=== PATIENT | male | born 1965 | race Caucasian/White ===

== ENCOUNTER 2020-01-06 09:10 | Day surgery (SDC) | payer OTHER, BC ==
[~2020-01-06 09:10] MED LIST: EPINEPHrine 1 MG/ML SDV ONE; Lidocaine 1% 4 ML ONE; Lidocaine 1%/Sod Bicarbonate in NS 8.4% 1 ML Syringe IDERM PRN; Midazolam 1 MG/ML 2 ML SDV ONE; Neostigmine Methylsulfate 1 MG/ML 5 ML Syringe ONE; Ondansetron 4 MG/2 ML SDV ONE; Propofol 200 MG/20 ML SDV ONE; Rocuronium 50 MG/5 ML Vial ONE; Ropivacaine 0.5% 5 MG/ML 30 ML SDV ONE; Sodium Chloride 0.9% 10 ML Syringe FLUSH PRN; ceFAZolin 1 GM Vial ONE; fentaNYL 250 MCG/5 ML SDV ONE
--- NOTE | 2020-01-06 09:50 | PCM.PREANE ---
Preanesthetic Assessment - Procedure Proposed Procedure: left shoulder video arthroscopy with rotator cuff repair - Anesthesia/Transfusion/Family Hx Anesthesia History: Prior Anesthesia Reaction Type of Anesthesia Reaction: Other (see below) (difficult breathing after) Family History of Anesthesia Reaction: No Transfusion History: No Prior Transfusion(s) - Review of Systems General: No Symptoms, Fever (2 weeks ago with the flu), Chills Pulmonary: Cough (flu 2 weeks ago) Cardiovascular: No Symptoms (uses treadmill ) Gastrointestinal: No Symptoms Neurological: No Symptoms Other: Reports: Thyroid Problems, Sinus Problem (history with freq sinus infections) - Physical Assessment NPO Status Date: 01/05/20 NPO Status Time: 23:00 Vital Signs: 137/90 72 99% 16 Height: 5 ft 8 in Weight: 92.7 kg ASA Class: 2 Mental Status: Alert & Oriented x3 Airway Class: Mallampati = 1 Dentition: Reports: Normal Dentition Thyro-Mental Finger Breadths: 3 Mouth Opening Finger Breadths: 3 ROM/Head Extension: Full Lungs: Clear to Auscultation, Normal Respiratory Effort Cardiovascular: Regular Rate, Regular Rhythm - Lab Values: Laboratory Last Values MRSA (PCR) Negative 01/04/20 17:20 - Allergies Allergies/Adverse Reactions: Allergies Allergy/AdvReac Type Severity Reaction Status Date / Time acetaminophen Allergy elevated Verified 01/05/20 14:53 heartrate - Blood Blood Available: No - Acknowledgements Anesthesia Type Planned: General Anesthesia Pt an Appropriate Candidate for the Planned Anesthesia: Yes Alternatives and Risks of Anesthesia Discussed w Pt/Guardian: Yes Pt/Guardian Understands and Agrees with Anesthesia Plan: Yes PreAnesthesia Questionnaire HEENT History: Reports: Impaired Vision Cardiovascular History: Reports: Hypertension Respiratory History: Reports: Sleep Apnea (cpap) Gastrointestinal History: Reports: Chronic Diarrhea, Diverticulosis Genitourinary History: Reports: None PHOTO STUDIO ASSISTANT History: Reports: None Musculoskeletal History: Reports: Other (See Below) Other Musculoskeletal History: left rotator cuff tear, left shoulder pain, joint arthralgia Neurological History: Reports: Migraines Psychiatric History: Reports: None Endocrine/Metabolic History: Reports: Hypothyroidism Hematologic History: Reports: None Immunologic History: Reports: None Oncologic (Cancer) History: Reports: None Dermatologic History: Reports: None - Past Surgical History Head Surgeries/Procedures: Reports: None HEENT Surgical History: Reports: None Cardiovascular Surgical History: Reports: None Respiratory Surgical History: Reports: None GI Surgical History: Reports: Cholecystectomy, Colonoscopy, Other (See Below) Other GI Surgeries/Procedures: pilonidal cystectomy Female Surgical History: Reports: None Male Surgical History: Reports: None Endocrine Surgical History: Reports: None Neurological Surgical History: Reports: C-Spine Other Neurological Surgeries/Procedures: [id number] fusion Musculoskeletal Surgical History: Reports: Other (See Below) Other Musculoskeletal Surgeries/Procedures:: bilateral rotator cuff repairs Oncologic Surgical History: Reports: None Dermatological Surgical History: Reports: None - SUBSTANCE USE Smoking Status *Q: Never Smoker Tobacco Use Within Last Twelve Months: No Second Hand Smoke Exposure: No Days Per Week of Alcohol Use: 1 Number of Drinks Per Day: 3 Total Drinks Per Week: 3 Recreational Drug Use History: No - HOME MEDS Home Medications: Home Meds Furosemide 20 mg PO DAILY 12/25/17 [History] Tadalafil [Cialis] 5 mg PO ASDIRECTED PRN 12/25/17 [History] Levothyroxine [Synthroid] 50 mcg PO DAILY 01/05/20 [History] Losartan [Cozaar] 50 mg PO DAILY 01/05/20 [History] SUMAtriptan Succinate [Imitrex] 25 mg PO ASDIRECTED PRN 01/05/20 [History] - CURRENT (IN HOUSE) MEDS Current Meds: Current Medications Epinephrine HCl (Adrenalin) 3 mg .XX ONETIME ONE Stop: 01/06/20 11:31 Lactated Ringer's (Ringers, Lactated) 1,000 mls @ 125 mls/hr IV ASDIRECTED KRISHNA Stop: 01/06/20 23:00 Lidocaine/Sodium Bicarbonate (Buffered Lidocaine 1% In Ns 8.4%) 0.25 ml IDERM ONETIME PRN PRN Reason: Prior to IV Start Stop: 01/06/20 18:00 Sodium Chloride (Saline Flush) 10 ml FLUSH ASDIRECTED PRN PRN Reason: Keep Vein Open Stop: 01/06/20 18:00 Discontinued Medications Cefazolin Sodium (Ancef) Confirm Administered Dose 2 gm .ROUTE .STK-MED ONE Stop: 01/06/20 08:38 Epinephrine HCl (Adrenalin) Confirm Administered Dose 1 mg .ROUTE .STK-MED ONE Stop: 01/06/20 07:15 Fentanyl (Sublimaze) Confirm Administered Dose 250 mcg .ROUTE .STK-MED ONE Stop: 01/06/20 08:06 Glycopyrrolate () Confirm Administered Dose 1 mg .ROUTE .STK-MED ONE Stop: 01/06/20 08:36 Lidocaine HCl (Xylocaine-Mpf 1%) Confirm Administered Dose 4 mls @ as directed .ROUTE .STUrban Massage-MED ONE Stop: 01/06/20 08:05 Midazolam HCl (Versed 1 Mg/Ml) Confirm Administered Dose 2 mg .ROUTE .STK-MED ONE Stop: 01/06/20 08:06 Ondansetron HCl (Zofran) Confirm Administered Dose 4 mg .ROUTE .STUrban Massage-MED ONE Stop: 01/06/20 08:05 Propofol (Diprivan 20 Ml) Confirm Administered Dose 200 mg .ROUTE .STUrban Massage-MED ONE Stop: 01/06/20 08:06 Rocuronium Pierre (Zemuron) Confirm Administered Dose 50 mg .ROUTE .STUrban Massage-MED ONE Stop: 01/06/20 08:05 Ropivacaine (Naropin 0.5%) Confirm Administered Dose 30 ml .ROUTE .STK-MED ONE Stop: 01/06/20 07:15
[2020-01-06] MEDS: Lactated Ringers 1,000 ML IV SCH ×2 (10:00→13:45)
[2020-01-06] MEDS ORDERED: Bupivacaine 0.25% 10 ML SDV ONE (10:13)
[2020-01-06] MEDS ORDERED: Ketamine 500 mg/10 ML MDV ONE (10:32)
[2020-01-06] MEDS ORDERED: HYDROmorphone 0.5 MG/0.5 ML Syringe ONE (10:33)
[2020-01-06] MEDS ORDERED: Ondansetron 4 MG/2 ML SDV IVPUSH PRN (10:37)
[2020-01-06] MEDS ORDERED: HYDROmorphone 0.5 MG/0.5 ML Syringe IVPUSH PRN (10:37)
[2020-01-06] MEDS ORDERED: fentaNYL 100 MCG/2 ML SDV IVPUSH PRN (10:37)
[2020-01-06] MEDS ORDERED: Ketorolac 30 MG/ML SDV ONE (10:50)
[2020-01-06] MEDS ORDERED: Neostigmine Methylsulfate 1 MG/ML 5 ML Syringe ONE (11:05)
[2020-01-06] MEDS ORDERED: EPINEPHrine 1 MG/1 ML Amp ONE (11:30)
--- NOTE | 2020-01-06 11:41 | PCM.POSTAN ---
POST ANESTHESIA ASSESSMENT - MENTAL STATUS Mental Status: Alert, Oriented - VITAL SIGNS Vital Signs: Last Vital Signs Temp 97.9 F 01/06/20 09:40 Pulse 77 01/06/20 09:40 Resp 16 01/06/20 09:40 BP 137/90 01/06/20 09:40 Pulse Ox 97 01/06/20 09:40 103 13 98 1 118/90 100% - RESPIRATORY Respiratory Status: Respiratory Rate WNL, Airway Patent, O2 Saturation Stable, Supplemental Oxygen - CARDIOVASCULAR CV Status: Pulse Rate WNL, Blood Pressure Stable - GASTROINTESTINAL GI Status: No Symptoms - PAIN Pain Score: 0 (states he is groggy) - POST OP HYDRATION Hydration Status: Adequate & Stable
[2020-01-06] MEDS ORDERED: oxyCODONE 5 MG Tab PO PRN ×3 (12:07→12:23)
--- NOTE | 2020-01-06 12:36 | PCM48HPAN ---
Post Anesthesia Note - EVALUATION WITHIN 48HRS OF ANESTHETIC Vital Signs in Normal Range: Yes Patient Participated in Evaluation: Yes Respiratory Function Stable: Yes Airway Patent: Yes Cardiovascular Function Stable: Yes Hydration Status Stable: Yes Pain Control Satisfactory: Yes Nausea and Vomiting Control Satisfactory: Yes Mental Status Recovered: Yes (pain is a 1. no complaints) Vital Signs: Last Vital Signs Temp 98.2 F 01/06/20 12:30 Pulse 77 01/06/20 12:30 Resp 15 01/06/20 12:30 BP 115/81 01/06/20 12:30 Pulse Ox 95 01/06/20 12:30
[2020-01-06] MEDS ORDERED: Haloperidol Lactate 5 MG/ML SDV ONE (13:42)
[2020-01-06] MEDS ORDERED: Haloperidol Lactate 5 MG/ML SDV IVPUSH STA (13:45)
--- NOTE | 2020-01-12 12:55 | PCM.OPNOTE ---
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
--- NOTE | 2020-01-12 13:21 | OR ---
DATE OF OPERATION: 01/06/2020 SURGEON: Jose Seay MD OPERATION PERFORMED: Left shoulder video arthroscopy with limited debridement. PREOPERATIVE DIAGNOSIS: Left shoulder rotator cuff tear. 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 ANESTHESIA: The patient did not receive a block. ANESTHESIA PROVIDER: Mg Mccoy CRNA. SOLAR INSTALLATION MANAGER: Pastora Cerna LPN. ESTIMATED BLOOD LOSS: Less than 5 mL. COMPLICATIONS: None. CONDITION: Stable. DESCRIPTION OF PROCEDURE: The patient was identified in the preop holding area. Proper site was marked and identified by the surgeon. The patient was taken back to the operating theater where after adequate anesthesia, the patient was placed in the lazy right lateral decubitus position. A wedge was placed posteriorly. The patient was secured to the table. Left upper extremity was then sterilely prepped and draped in the usual sterile fashion. OR time-out was performed. Patient received 2 g of IV Ancef. Ten pounds of traction was then applied to the left upper extremity. A standard posterior incision was made. Scope trocar was introduced to the glenohumeral joint. At this time, with the use of a spinal needle, anterior portal was then created from an outside-in technique. The patient was noted to have high-grade partial thickness tearing of the subscapularis. 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 His previous biceps tendon had ruptured. The patient was noted to have full-thickness rotator cuff tear of the supraspinatus. The previous suture was identified in the interval. This was then debrided out. I did debride any synovitis, but at this time, it was decided secondary to the patient's large amount of chondromalacia that he would need a reverse total shoulder arthroplasty and rotator cuff repair would not be attempted at this time. Excess saline was drained from the shoulder after a limited debridement. 3-0 nylon simple suture was used for closure of skin. Patient had a sterile soft dressing applied and was sent to PACU in stable condition. MMODAL /[id number]
== END 2020-01-06 14:56 | disposition home or self-care (01) ==
LOC: JD.SDS 09:10
PROVIDERS: ATTEND Orthopaedic Surgery
DX: M75.122 Complete rotator cuff tear or rupture of left shoulder, not specified as traumatic (principal); M94.212 Chondromalacia, left shoulder; S46.812A Strain of other muscles, fascia and tendons at shoulder and upper arm level, left arm, initial encounter; E03.9 Hypothyroidism, unspecified; I10 Essential (primary) hypertension; G43.909 Migraine, unspecified, not intractable, without status migrainosus; G47.30 Sleep apnea, unspecified; Z88.6 Allergy status to analgesic agent; Z79.52 Long term (current) use of systemic steroids; Z99.89 Dependence on other enabling machines and devices; Z79.899 Other long term (current) drug therapy
CPT/HCPCS: 29822; 87641; A9270; J0690; J1170; J1630; J1885; J2001; J2250; J2405; J2704; J2710; J3010; J3490; J7120; 01630; J0171; J2795